=== PATIENT | male | born 1975 | race Caucasian/White ===

== ENCOUNTER → 2019-01-21 | Outpatient (CLI) | payer OTHER ==
--- NOTE | 2019-01-21 15:22 | Diagnostic Imaging Report ---
PATIENT HISTORY: ANKLE PAIN LEFT. TECHNIQUE: Three views of the left ankle. COMPARISON: None. FINDINGS: No acute fracture or dislocation is seen in the left ankle. Alignment appears normal. Joint spaces are preserved. No cortical erosions are seen. There is a small tibiotalar joint effusion. IMPRESSION: No acute osseous abnormality is seen in the left ankle. There is a small tibiotalar joint effusion. Dictated by: Dictated on workstation # [id number]
== END ==
LOC: RAD FS 13:43
PROVIDERS: ATTEND Nurse Practitioner
DX: M25.472 Effusion, left ankle (principal)
CPT/HCPCS: 73610

== ENCOUNTER 2022-01-11 17:28 | Emergency (ER) | payer SELFPAY ==
[~2022-01-11] VITALS: Ht 167 cm; Wt 101.1 kg
[2022-01-11] MEDS ORDERED: LIDOCAINE/EPI 2% 1:200,00 (XYLOCAINE) 20 ML VIAL ONE (17:55)
[2022-01-11] MEDS ORDERED: LIDOCAINE/EPI 2% 1:100,00 (XYLOCAINE) 20 ML VIAL INJ ONE (18:00)
[2022-01-11] MEDS ORDERED: TETANUS,DIPTH,PERTUSS P/F (BOOSTRIX) 0.5 ML VIAL IM ONE (18:00)
--- NOTE | 2022-01-11 18:01 | ED Head Injury ---
General Stated Complaint: HEAD LAC Source: patient, family History of Present Illness Date Seen by Provider: Jan 11, 2022 Time Seen by Provider: 17:40 Initial Comments 46-year-old male presenting with laceration to the forehead. He states that he had accidentally walked into farm equipment and cut his forehead. He denies any loss of consciousness. He has no change in vision. He has no nausea or vomiting. He had bleeding controlled but then when he went to clean it at home he dislodged blood clot and it started spreading blood. He has not been able to get the bleeding to stop since then. He states that has been more than 5 years for his last tetanus booster. Occurred: this afternoon Severity: mild Location: other (Forehead) Method of Injury: direct blow Loss of Consciousness: no loss of consciousness Associated Systoms: No Chest Pain, No Cough, No Diaphoresis, No Fever/Chills, No Loss of Appetite, No Malaise, No Nausea/Vomiting, No Rash, No Seizure, No Shortness of Air, No Syncope, No Weakness Allergies and Home Medications Allergies Coded Allergies: No Known Drug Allergies (Unverified , 01/11/22) Patient Home Medication List Home Medication List Reviewed: Yes Review of Systems Review of Systems Constitutional: No chills, No fever Eyes: No Symptoms Reported Ears, Nose, Mouth, Throat: no symptoms reported Respiratory: no symptoms reported Cardiovascular: no symptoms reported Gastrointestinal: no symptoms reported Genitourinary: no symptoms reported Musculoskeletal: no symptoms reported Skin: see HPI Psychiatric/Neurological: Denies Headache, Denies Numbness Physical Exam Vital Signs Capillary Refill : Height, Weight, BMI Height: '" Weight: lbs. oz. kg; BMI Method: General Appearance: WD/WN, no apparent distress HEENT: PERRL/EOMI, pharynx normal Neck: non-tender, full range of motion, supple, normal inspection Cardiovascular: normal peripheral pulses, regular rate, rhythm Respiratory: chest non-tender, lungs clear, normal breath sounds Psychiatric: alert, oriented x 3 Crainal Nerves: normal hearing, normal speech, PERRL Coordination/Gait: normal gait Motor/Sensory: no motor deficit, no sensory deficit Skin: warm/dry, other (1.2 cm vertical laceration on the forehead just above his right eyebrow.) Mart Coma Score Best Eye Response: (4) Open Spontaneously Best Verbal Response: (5) Oriented Best Motor Response: (6) Obeys Commands Mart Total: 15 Procedures/Interventions Wound Location: Face Wound Length (cm): 1.2 Wound's Depth, Shape: linear, sub Q Wound Explored: clean Irrigated w/ Saline (ccs): 50 Anesthesia: Lidocaine w/ Epi Volume Anesthetic (ccs): 2 Suture: Ethlion Suture Size: 5-0 Number of Sutures: 3 Layer Closure?: 1 Sterile Dressing Applied?: Yes Progress After obtaining verbal consent from the patient the wound was cleaned with chlorhexidine scrub soap and sterile water. Then using 2% lidocaine with epinephrine the wound was infiltrated with 2 mL of anesthetic. 3 simple interrupted stitches were placed using 5-0 Ethilon. This approximated the wound edges well and decrease the bleeding. Patient held pressure while we were getting supplies together to do a sterile dressing and bleeding was controlled. Given an ice pack to help with swelling and bruising. Counseled on follow-up and return precautions. Stitches out in 5 to 7 days. Progress/Results/Core Measures Results/Orders My Orders Orders - YAHIR CHIN MD Lidocaine/Epi Mpf 2% 1:200,000 (Xylocain (01/11/22 17:55) Dipht,Pertuss(Acell),Tet Adult (Boostrix (01/11/22 18:00) Lidocaine/Epi 2% 1:100,000 (Xylocaine/Ep (01/11/22 18:00) Suture Set At Bedside (01/11/22 17:58) Medications Given in ED Current Medications Medications Dose Ordered Sig/Renetta Route Start Time Stop Time Status Last Admin Dose Admin Diphtheria/ Tetanus/Acell Pertussis 0.5 ml ONCE ONCE IM 01/11/22 18:00 01/11/22 18:01 DC 01/11/22 18:38 0.5 ML Lidocaine/ Epinephrine 20 ml STK-MED ONCE .ROUTE 01/11/22 17:55 01/11/22 17:56 DC 01/11/22 18:38 5 ML Progress Progress Note : Progress Note Repair laceration with stitches and update his tetanus booster. Counseled on follow-up and return precautions. Stitches out in 5 to 7 days. Departure Impression Primary Impression: Laceration of forehead without complication Qualified Codes: S01.81XA - Laceration without foreign body of other part of head, initial encounter Disposition: 01 HOME, SELF-CARE Condition: Stable Departure-Patient Inst. Decision time for Depature: 18:29 Referrals: LUTHER SCHOFIELD MD (PCP/Family) Primary Care Physician Patient Instructions: Laceration Repair With Stitches ED Add. Discharge Instructions: Keep wound clean and dry for first 24 hours then may wash with soap and water but do not soak or scrub it. May apply antibiotic ointment 2-3 times a day and cover with bandaid as needed. Stitch needs to be removed in 5-7 days. You may return here to the ER or follow up with clinic. Try to keep your head elevated at least 30 to 45 degrees to help limit swelling and bleeding. May apply ice for 15 to 20 minutes every few hours as needed to help with swelling and bleeding. YAHIR CHIN MD Jan 11, 2022 18:01
[2022-01-11 20:31] VITALS: BP 146/100
== END 2022-01-11 18:50 | disposition home or self-care (01) ==
LOC: EDUNIT# 17:28 → ER FS 17:29
DX: S01.81XA Laceration without foreign body of other part of head, initial encounter (principal); Z23 Encounter for immunization; W26.8XXA Contact with other sharp object(s), not elsewhere classified, initial encounter; Y93.01 Activity, walking, marching and hiking; Y92.73 Farm field as the place of occurrence of the external cause
CPT/HCPCS: 12013; 90715

== ENCOUNTER 2022-01-19 08:49 | Emergency (ER) | payer SELFPAY ==
[2022-01-19 09:00] VITALS: BP 118/61
== END 2022-01-19 09:02 | disposition home or self-care (01) ==
LOC: EDUNIT# 08:49 → ER FS 08:50
DX: Z48.02 Encounter for removal of sutures (principal)